=== PATIENT | female | born 1955 | race Caucasian/White ===

== ENCOUNTER 2018-03-06 16:08 | Emergency (ER) | payer OTHER ==
[~2018-03-06] VITALS: Ht 165.1 cm; Wt 83.9 kg
[2018-03-06 16:15] VITALS: BP 143/79; Ht 165.1 cm; Wt 83.9 kg
== END 2018-03-06 18:05 | disposition home or self-care (01) ==
LOC: ED 16:08
DX: M25.512 Pain in left shoulder (principal); I10 Essential (primary) hypertension; R51 Headache; K21.9 Gastro-esophageal reflux disease without esophagitis
CPT/HCPCS: 82962